=== PATIENT | female | born 1955 | race Two or more races ===

== ENCOUNTER 2017-11-16 10:38 | Emergency (ER) | payer OTHER ==
[2017-11-16 10:44] VITALS: BP 137/67
--- NOTE | 2017-11-16 10:46 | ER Document Report ---
HPI - HPI Patient complains to provider of: Right ear pain and sore throat Onset: Yesterday Pain Level: 4 Context: 62-year-old female complaining of right ear pain, sore throat, no runny nose or cough. No fever or chills. History of anxiety. Associated Symptoms: None Exacerbated by: Movement - And swallowing Relieved by: Denies Similar symptoms previously: No Recently seen / treated by doctor: No - ROS ROS below otherwise negative: Yes Systems Reviewed and Negative: Yes All other systems reviewed and negative - REPRODUCTIVE Reproductive: DENIES: : Past Medical History - General Information source: Patient - Social History Smoking Status: Unknown if Ever Smoked Lives with: Family Family History: CAD, Hyperlipidemia, Hypertension - Past Medical History Cardiac Medical History: Reports: Hx Hypertension Pulmonary Medical History: Reports: Hx Sleep Apnea Psychiatric Medical History: Reports: Hx Depression Past Surgical History: Reports: Hx Hysterectomy - partial - Immunizations Immunizations up to date: Yes Hx Diphtheria, Pertussis, Tetanus Vaccination: Yes Vertical Provider Document - CONSTITUTIONAL Agree With Documented VS: Yes Exam Limitations: No Limitations - INFECTION CONTROL TRAVEL OUTSIDE OF THE [place] IN LAST 30 DAYS: No - HEENT HEENT: negative: Conjuctival Injection Notes: Mild swelling and pain to the right external ear in the tragus. The canal is normal the eardrum is normal. Her parotid gland on the right side is swollen but nontender, her pharynx is minimally red rapid strep is been sent. - NECK Neck: Supple. negative: Lymphadenopathy-Left, Lymphadenopathy-Right - RESPIRATORY Respiratory: Breath Sounds Normal, No Respiratory Distress - CARDIOVASCULAR Cardiovascular: Regular Rate, Regular Rhythm - NEURO Level of Consciousness: Awake - DERM Integumentary: No Rash Course - Vital Signs Vital signs: Temp Pulse Resp BP Pulse Ox 97.7 F 102 H 18 137/67 H 94 11/16/17 10:42 11/16/17 10:42 11/16/17 10:42 11/16/17 10:42 11/16/17 10:42 Discharge - Discharge Clinical Impression: right parotitis, Sore throat Right otitis externa Qualifiers: Otitis externa type: unspecified type Chronicity: acute Qualified Code(s): H60.501 - Unspecified acute noninfective otitis externa, right ear Condition: Good Disposition: HOME, SELF-CARE Instructions: Acetaminophen, Ciprofloxacin ([facility]), Use of Ear Drops ([facility]), Otitis Externa ([facility]), Steroid Medication, Warm Packs ([facility]) Additional Instructions: Warm compress to your ear and parotid gland on that right side Eardrops twice a day as prescribed Clindamycin 3 times a day for a week Return to the emergency worse symptoms Dexamethasone 10 mg given IM to reduce the symptoms Prescriptions: Clindamycin HCl [Cleocin 150 mg Capsule] 300 mg PO TID #24 capsule Clindamycin HCl [Cleocin 150 mg Capsule] 300 mg PO TID #18 capsule
[2017-11-16] MEDS ORDERED: CIPROFLOXACIN HCL/DEXAMETH OTIC DROP 7.5 ML AD ONE (10:51)
[2017-11-16] MEDS ORDERED: CLINDAMYCIN HCL 150 MG CAPSULE PO ONE (10:53)
[2017-11-16] MEDS ORDERED: ONDANSETRON 4 MG TAB.RAPDIS PO ONE (10:53)
[2017-11-16] MEDS ORDERED: DEXAMETHASONE SOD PHOS INJ 10 MG/1 ML VIAL IM ONE (10:53)
[2017-11-16] MEDS ORDERED: HYDROCODONE/ACETAMINOPHEN 5-325 MG (6 TAB/ER DISP) PO PRN (10:57)
== END 2017-11-16 11:18 | disposition home or self-care (01) ==
LOC: ER 10:38
DX: H60.501 Unspecified acute noninfective otitis externa, right ear (principal); K11.20 Sialoadenitis, unspecified; J02.9 Acute pharyngitis, unspecified
CPT/HCPCS: 99283; 96372; 87070; 87880; S0119; J3490; J1100